=== PATIENT | male | born 1950 | race Caucasian/White ===

== ENCOUNTER 2024-10-05 07:55 | Day surgery (SDC) | payer BC ==
[2024-10-05] MEDS: IRON SUCROSE INJECTION 200 MG in SODIUM CHLORIDE 100 ML IVPB ONE (08:55)
[2024-10-05 11:59] VITALS: TEMP 97.7
[2024-10-05 12:13] VITALS: BP 104/67; PULSE 73; RESP 18
== END 2024-10-05 10:05 | disposition home or self-care (01) ==
LOC: MERGE 07:55 → JINFUSION 07:55 → J7W 08:05 → JINFUSION 10:05
PROVIDERS: ATTEND Family Medicine
PROC: 3E033GC Introduction of Other Therapeutic Substance into Peripheral Vein, Percutaneous Approach (ICD-10-PCS; principal; 2024-10-05)
DX: D50.9 Iron deficiency anemia, unspecified (principal)
CPT/HCPCS: 96365; J1756

== ENCOUNTER 2024-10-10 18:23 | Inpatient (IN) | payer BC ==
[2024-10-10] MEDS ORDERED: CALCIUM GLUCONATE 10% - 1,000 MG/10 ML VIAL ONE (18:27)
[2024-10-10] MEDS ORDERED: ASPIRIN SUPPOSITORY 600 MG SUPP.RECT RC ONE (18:45)
[2024-10-10] MEDS ORDERED: ALBUTEROL SO4 0.083% IH SOL 2.5 MG/3 ML VIAL.NEB. NEB ONE (18:53)
[2024-10-10] MEDS ORDERED: HEPARIN NA (PORCINE) 5,000 UNITS/ML 1ML VIAL ONE (18:53)
[2024-10-10] MEDS ORDERED: HEPARIN INFUSION - 25,000 UNITS/500 ML INFUS.BAG IVPB ONE (18:53)
[2024-10-10] MEDS ORDERED: EPINEPHrine 1:10,000 (P-F SYR) 1 MG/10 ML DISP.SYRIN ONE ×4 (18:58→21:20)
[2024-10-10] MEDS ORDERED: HEPARIN - 25,000 UNIT in SODIUM CHLORIDE 495 ML IV SCH (19:00)
[2024-10-10] MEDS: HEPARIN NA (PORCINE) 5,000 UNITS/ML 1ML VIAL IVPUSH ONE (19:05)
[2024-10-10 19:18] VITALS: RESP 16
[2024-10-10] MEDS ORDERED: NOREPINEPHRINE BITARTRATE 4 MG/4 ML ML IV ONE ×2 (19:26→21:57)
[2024-10-10 19:32] LABS: BASO % 0.4 % (0-2.0); EOS % 0.6 % (0-4.5); HEMATOCRIT 36.8 % (35.4-49); HEMOGLOBIN 10.7 GM/dL (11.7-16.9); LYMPH % 45.7 % (8-40); MCH 29.1 pg (25.7-33.7); MEAN CELL VOLUME 100.4 fl (80-96); MEAN PLT VOLUME 8.6 fl (7.5-11.1); MONO % 7.3 % (3.8-10.2); PLATELET COUNT 136 10^3/uL (134-434); RBC 3.67 M/mm3 (4.00-5.60); WHITE BLOOD COUNT 14.9 K/mm3 (4.0-10.0)
[2024-10-10] MEDS ORDERED: ALTEPLASE 100MG 100 ML ONE (19:38)
[2024-10-10 19:43] LABS: INR 1.23 (0.83-1.09)
[2024-10-10 19:57] LABS: CHLORIDE 110 mmol/L (98-107); POTASSIUM 5.3 mmol/L (3.5-5.1); SODIUM 141 mmol/L (136-145)
[2024-10-10 19:59] LABS: ALBUMIN 2.8 g/dl (3.4-5.0); ANION GAP 15 mmol/L (4-13); BLOOD UREA NITROGEN 26.5 mg/dL (7-18); CALCIUM 8.9 mg/dL (8.5-10.1); CO2 16 mmol/L (21-32); GLUCOSE,RANDOM 286 mg/dL (74-106); MAGNESIUM 2.8 mg/dL (1.8-2.4)
[2024-10-10 20:02] LABS: CREATININE 1.6 mg/dL (0.55-1.3); SGOT/AST 82 U/L (15-37); SGPT/ALT 59 U/L (13-61)
[2024-10-10 20:03] LABS: ANISOCYTOSIS 2+; MACROCYTOSIS 2+; OVALOCYTE 1+; TEAR DROP CELLS 1+
[2024-10-10 20:04] LABS: BILIRUBIN,TOTAL 0.2 mg/dL (0.2-1); TOT PROT 6.3 g/dl (6.4-8.2)
[2024-10-10 20:05] LABS: ALK PHOS 114 U/L (45-117)
[2024-10-10 20:07] LABS: N-TERMINAL BNP 2514.3 pg/ml (5-125)
[2024-10-10 20:21] LABS: ACTIVATED PTT > 200.0 SECONDS (25.2-36.5)
[2024-10-10 20:34] LABS: VENOUS BASE EXCESS -16.9 mmol/L (-2-2); VENOUS O2 SATURATION 76.3 % (70-80); VENOUS PCO2 66.5 mmHg (38-52)
[2024-10-10 20:35] LABS: ARTERIAL BLD GAS O2 SATURATION 77.1 % (95-98); ARTERIAL BLOOD GAS PO2 64.1 mmHg (80-100)
[2024-10-10 20:46] LABS: ARTERIAL BLOOD GAS pH 6.961 (7.350-7.450)
[2024-10-10 20:47] LABS: VENOUS PH 6.975 (7.310-7.410)
[2024-10-10] MEDS ORDERED: SODIUM BICARBONATE 8.4% 50 MEQ/50 ML DISP.SYRIN ONE ×2 (20:53→20:54)
[2024-10-10] MEDS ORDERED: EPINEPHrine 1:1000 P/F - 1 MG/ML AMP ONE (20:56)
[2024-10-10] MEDS ORDERED: VASopressin 20 UNITS/ML VIAL IV ONE (21:07)
[2024-10-10 21:16] LABS: ARTERIAL BLD GAS O2 SATURATION 78.3 % (95-98); ARTERIAL BLOOD GAS BASE EXCESS -8.7 mmol/L (-2-2); ARTERIAL BLOOD GAS PO2 58.2 mmHg (80-100)
[2024-10-10 21:19] LABS: ALLENS TEST POSITIVE
[2024-10-10] MEDS ORDERED: CALCIUM CHLORIDE 1 GM/10 ML *DISP.SYRIN ONE (21:19)
[2024-10-10 21:22] LABS: VENT MODE A/C; VENT RATE 16
[2024-10-10 21:24] LABS: ARTERIAL BLOOD GAS pH 7.093 (7.350-7.450)
[2024-10-10 22:35] VITALS: BP 97/62; PULSE 91; BMI 29.5
[2024-10-10] MEDS ORDERED: ASPIRIN 300 MG SUPP.RECT RC ONE (23:00)
== END 2024-10-10 23:20 | disposition expired | DRG 208 ==
LOC: JER 18:23 → JICU 21:56
PROVIDERS: ADMIT Internal Medicine Pulmonary Disease; ATTEND Internal Medicine Pulmonary Disease
PROC: 5A1935Z Respiratory Ventilation, Less than 24 Consecutive Hours (ICD-10-PCS; principal; 2024-10-10)
PROC: 0BH17EZ Insertion of Endotracheal Airway into Trachea, Via Natural or Artificial Opening (ICD-10-PCS; 2024-10-10)
PROC: 5A12012 Performance of Cardiac Output, Single, Manual (ICD-10-PCS; 2024-10-10)
PROC: 4A133B1 Monitoring of Arterial Pressure, Peripheral, Percutaneous Approach (ICD-10-PCS; 2024-10-10)
PROC: 4A133J1 Monitoring of Arterial Pulse, Peripheral, Percutaneous Approach (ICD-10-PCS; 2024-10-10)
PROC: 06HY33Z Insertion of Infusion Device into Lower Vein, Percutaneous Approach (ICD-10-PCS; 2024-10-10)
PROC: 3E05317 Introduction of Other Thrombolytic into Peripheral Artery, Percutaneous Approach (ICD-10-PCS; 2024-10-10)
DX: I26.99 Other pulmonary embolism without acute cor pulmonale (principal); J80 Acute respiratory distress syndrome; I50.20 Unspecified systolic (congestive) heart failure; I47.20 Ventricular tachycardia, unspecified; I46.9 Cardiac arrest, cause unspecified; I49.01 Ventricular fibrillation; J44.9 Chronic obstructive pulmonary disease, unspecified; I25.10 Atherosclerotic heart disease of native coronary artery without angina pectoris
CPT/HCPCS: 36415; 36600; 71045-TC-FY; 80053; 82803; 83735; 83880; 84484; 85025; 85610; 85730; 93005; 93010; 99285-25; J1644; J2997